=== PATIENT | male | born 1960 | race Caucasian/White ===

== ENCOUNTER 2021-04-20 13:21 | Outpatient (REF) | payer OTHER, SELFPAY ==
[2021-04-21 08:07] LABS: COVID-19 RT-PCR UVMMC Result Positive (Negative)
== END 2021-04-20 13:22 | disposition home or self-care (01) ==
LOC: NCHCN 13:21
PROVIDERS: PCP Family Medicine; Visit Provider Nurse Practitioner Family
DX: Z20.822 Contact with and (suspected) exposure to COVID-19 (principal)
CPT/HCPCS: U0003

== ENCOUNTER 2023-06-04 21:43 | Outpatient (REF) | payer OTHER, SELFPAY ==
[2023-06-04 22:02] LABS: Abs Immature Grans 0.02 10^3/uL (0.0-0.06); Absolute Basophil Count 0.07 10^3/uL (0.0-0.2); Absolute Eosinophil Count 0.07 10^3/uL (0.0-0.7); Absolute Lymphocyte Count 1.02 10^3/uL (1.2-3.4); Absolute Monocyte Count 0.72 10^3/uL (0.1-0.8); Absolute Neutrophil Count 6.42 10^3/uL (1.2-6.7); Basophils % 0.8; Eosinophils % 0.8; HCT 42.3 % (40.0-50.0); HGB 14.6 g/dL (13.5-17.5); Immature Grans % 0.2; Lymphocytes % 12.3; MCH 30.9 pg (27.0-33.0); MCHC 34.5 % (32.0-36.0); MCV 89 fL (80-95); MPV 10.7 fL (8.0-11.0); Monocytes % 8.7; Neutrophils % 77.2; Platelet Count 211 10^3/uL (130-400); RBC 4.73 10^6/uL (4.36-5.78); RDW 13.8 % (11.8-14.1); RDW-SD 45.1 fL; WBC 8.32 10^3/uL (4.4-10.8)
[2023-06-04 22:19] LABS: ALT 67 U/L (16-63); AST 56 U/L (15-37); Albumin 3.7 g/dL (3.4-5.0); Alkaline Phosphatase 76 U/L (46-116); Anion Gap 11.6 mmol/L (3-11); BUN 13 mg/dL (7-18); Bilirubin, Total 0.8 mg/dL (0.2-1.0); CO2 27.4 mmol/L (21.0-32.0); CREATININE 1.1 mg/dL (0.70-1.30); Chloride 101 mmol/L (98-107); Glucose 105 mg/dL (74-106); NT-proBNP 2569 pg/mL (<300); Potassium 3.2 mmol/L (3.5-5.1); Sodium 140 mmol/L (136-145); TSH 2.56 uIU/mL (0.36-3.74); Total Protein 7.2 g/dL (6.4-8.2)
== END 2023-06-04 21:44 | disposition home or self-care (01) ==
LOC: LBN 21:43
PROVIDERS: PCP Family Medicine; Visit Provider Nurse Practitioner Family
DX: I48.91 Unspecified atrial fibrillation (principal)
CPT/HCPCS: 80053; 83880; 84443; 85025

== ENCOUNTER → 2023-06-06 01:26 | Outpatient (CLI) | payer OTHER, SELFPAY ==
--- NOTE | 2023-06-06 | DI.RAD_ITS ---
Exam(s) XR CHEST 2V PA LATERAL EXAM: XR CHEST 2V PA LATERAL CLINICAL HISTORY: HYPERTENSION,NEW ONSET A FIB,SOB,? FLUID IN LUNGS TECHNIQUE: 2D digital imaging was performed of the chest. Two images were obtained. PA and lateral views were obtained. COMPARISON: No exams were available for comparison FINDINGS: MEDIASTINUM: Normal. HEART: Cardiomegaly. PULMONARY VASCULATURE: There is pulmonary venous congestion. LUNGS: No focal consolidating infiltrates. PLEURAL SPACE: There is a small amount of fluid in the right minor fissure and posteriorly at the cos tophrenic angles. BONE:Within normal limits for the patient's age. OTHER FINDINGS:Normal. IMPRESSION: 1. Cardiomegaly and pulmonary venous congestion. 2. Tiny pleural effusions. DATA REPOSITORY: RADIATION DOSE DELIVERED:
== END ==
PROVIDERS: PCP Family Medicine; Visit Provider Physician Assistant Medical
DX: I51.7 Cardiomegaly
CPT/HCPCS: 71046

== ENCOUNTER 2023-06-24 11:15 | Emergency (ER) | payer OTHER, SELFPAY ==
[2023-06-24] VITALS (147 sets, daily range): BP systolic 152–262; BP diastolic 101–172; PULSE 60–125; RESP 13–336; TEMP 36.5; O2SAT 90–97
--- NOTE | 2023-06-24 11:45 | RT.EKG_ITS ---
APPROVED REPORT Exam: Resting ECG Reason for Exam: JASMINA/a-laura Patient Location: E HR:99 bpm ECG Measurements Heart Rate 99 AXIS AK [id number] P [id number] QRSd 111 QRS -15 QT 385 T 120 QTc 495 Conclusion Atrial fibrillation...V-rate 86-125, irreg A-activity Inferior infarct, old...Q >35mS, II III aVF Probable anterolateral infarct, age indeterm...Q >35mS, T neg, V2-V6,I,aVL afib,rate controlled, left axis, non ischemic
[2023-06-24] MEDS: Furosemide 100 MG/10 ML VIAL 80 MG IVP (12:20)
[2023-06-24] MEDS: nitroGLYcerin 0.4 MG TAB SL (12:21)
[2023-06-24 12:26] LABS: Abs Immature Grans 0.03 10^3/uL (0.0-0.06); Absolute Basophil Count 0.06 10^3/uL (0.0-0.2); Absolute Eosinophil Count 0.05 10^3/uL (0.0-0.7); Absolute Lymphocyte Count 1.06 10^3/uL (1.2-3.4); Absolute Monocyte Count 0.76 10^3/uL (0.1-0.8); Absolute Neutrophil Count 6.81 10^3/uL (1.2-6.7); Basophils % 0.7; Eosinophils % 0.6; HCT 43.4 % (40.0-50.0); HGB 14.9 g/dL (13.5-17.5); Immature Grans % 0.3; Lymphocytes % 12.1; MCH 30.3 pg (27.0-33.0); MCHC 34.3 % (32.0-36.0); MCV 88 fL (80-95); MPV 10.4 fL (8.0-11.0); Monocytes % 8.7; Neutrophils % 77.6; Platelet Count 213 10^3/uL (130-400); RBC 4.91 10^6/uL (4.36-5.78); RDW 13.2 % (11.8-14.1); RDW-SD 42.8 fL; WBC 8.77 10^3/uL (4.4-10.8)
[2023-06-24 12:32] LABS: INR 1.2 (0.9-1.1); PTT Activated 29.6 sec (23.6-32.8); Prothrombin Time 11.7 sec (9.1-11.1)
--- NOTE | 2023-06-24 12:41 | ED.GENADUL_ITS ---
HPI General Date/Time Provider Initiated Documentation: 06/24/23 11:55 . HPI Narrative: 63-year-old male history of A-fib on anticoagulation presents with shortness of breath on exertion and fatigue. Denies history of thrombolic disease. Does take HCTZ for edema. Related Data Home Medications Medication Instructions Recorded Confirmed apixaban 5 mg tablet (Eliquis) 5 mg PO BID 06/24/23 06/24/23 furosemide 40 mg tablet 40 mg PO DAILY 06/24/23 06/24/23 metoprolol succinate 25 mg 25 mg PO DAILY 06/24/23 06/24/23 tablet,extended release 24 hr potassium chloride 20 mEq 20 meq PO DAILY 06/24/23 06/24/23 tablet,extended release Allergies Allergy/AdvReac Type Severity Reaction Status Date / Time No Known Allergies Allergy Unverified 06/24/23 11:27 General Stated Complaint: SOB BROWN: 2 Review of Systems Narrative: Review of Systems Constitutional: Fatigue Eyes: negative ENT: negative Cardiovascular: negative Respiratory: Shortness of breath Gastrointestinal: negative : negative Musculoskeletal: negative Skin: negative Neurologic: negative Psych: negative Exam Narrative Exam Narrative: Physical Examination General: alert, awake, cooperative, resting comfortably, no acute distress HEENT: normocephalic, atraumatic; PERRL, EOM intact, conjunctiva normal; no nasal discharge; moist mucous membranes, oral and pharyngeal mucosa normal, tolerating secretions Neck: supple, trachea midline; full ROM Chest: normal to inspection Respiratory: normal respiratory effort, speaking in full sentences, clear to auscultation, no wheezing, rales or rhonchi Cardiac: Irregularly irregular tachycardia, S1S2 intact, no murmurs rubs or gallops GI: abdomen soft, non-tender, non-distended; no palpable mass or hep atosplenomegaly Skin: no lesions, rashes or trauma appreciated Neuro: AAOx3, normal speech, moving all extremities Extremities: Edema to bilateral ankles Psych: Appropriate mood and affect Course Vital Signs Vital signs: Vital Signs Temperature 36.5 C 06/24/23 11:24 Pulse 111 H 06/24/23 11:24 Respiratory Rate 06/24/23 11:24 Blood Pressure 262/151 H 06/24/23 11:24 Pulse Oximetry 96 06/24/23 11:24 Temperature 36.5 C 06/24/23 11:24 Temperature Source Temporal Artery Scan 06/24/23 11:24 Pulse 105 H 06/24/23 11:35 Pulse 104 H 06/24/23 11:35 Respiratory Rate 336 H 06/24/23 11:37 Respiratory Effort Short of Breath, Incrsd Work of Breathing 06/24/23 11:37 Respiratory Depth Normal 06/24/23 11:37 Respiratory Pattern Tachypnea 06/24/23 11:37 Blood Pressure 229/157 H 06/24/23 11:35 Blood Pressure Mean 177 06/24/23 11:35 Blood Pressure Position Sitting 06/24/23 11:24 Pulse Oximetry 97 06/24/23 11:35 Oxygen Delivery Method Room Air 06/24/23 11:24 Oxygen Flow Rate 0 06/24/23 11:24 Pain Level 5 06/24/23 11:37 Comment 8/10 when walking 06/24/23 11:37 Lab/Test Results Lab/Test Results: Laboratory Tests Range/Units 06/24/23 12:00 WBC (4.4-10.8) 10^3/uL 8.77 RBC (4.36-5.78) 10^6/uL 4.91 Hgb (13.5-17.5) g/dL 14.9 Hct (40.0-50.0) % 43.4 MCV (80-95) fL 88 MCH (27.0-33.0) pg 30.3 MCHC (32.0-36.0) % 34.3 RDW (11.8-14.1) % 13.2 Plt Count (130-400) 10^3/uL 213 MPV (8.0-11.0) fL 10.4 Immature Gran % 0.3 Neutrophils % 77.6 Lymphocytes % 12.1 Monocytes % 8.7 Eosinophils % 0.6 Basophils % 0.7 Nucleated RBC % (0.0-0.3) % 0.0 Absolute Neutrophils (1.2-6.7) 10^3/uL 6.81 H Absolute Lymphocytes (1.2-3.4) 10^3/uL 1.06 L Absolute Monocytes (0.1-0.8) 10^3/uL 0.76 Absolute Eosinophils (0.0-0.7) 10^3/uL 0.05 Absolute Basophils (0.0-0.2) 10^3/uL 0.06 PT (9.1-11.1) sec 11.7 H INR (0.9-1.1) 1.2 H APTT (23.6-32.8) sec 29.6 Medical Decision Making 63-year-old male history of A-fib on anticoagulation, on HCTZ, presents with shortness of breath and fatigue exertional in nature. EKG A-fib rate controlled; patient does have bilateral ankle edema, bedside ultrasound showing decreased ejection fraction as well as bilateral B-lines suggestive of component of CHF and pulmonary edema. Given level of hypertension both pulmonary and peripheral edema patient started on nitro given 80 IV of Lasix, will obtain basic labs chest x-ray. Close reassessment of symptoms. Low suspicion for ACS PE aortic pathology pneumonia pneumothorax 16: 56 evidence of mild CHF, elevated troponin slightly uptrending. No chest pain, patient feeling much better after diuresis. No respiratory distress. Given exertional dyspnea fatigue in the setting of elevated troponin, Q waves on EKG patient likely had NSTEMI within the last week or 2. Has a remote cardiology appointment for July, have placed a call to [place] for cardiology consultation however is after hours and they recommend using [facility] cardiology service. Have placed a call to [facility] for consultation with cardiology. 17: 35 [facility] agrees that this is likely hypertensive emergency with component of NSTEMI, patient to benefit from echo BP control serial troponin EKG and possible cath however given there decreased capacity they are unable to accept patient, recommend transferring patient to facility with ability to perform catheterization. Have placed a call to [facility] cardiology team awaiting callback. Quality:[facility] Health Related Social Needs: No Data to Display [facility] Social History Smoking/Tobacco Use Status: Never Smoking risk assessment performed?: Yes Alcohol Intake: current Alcohol Intake frequency: holidays/special occasions only Drug use: Never Substance use type: does not use Housing: house Do you feel safe at home: Yes Do you feel safe in your relationship?: Yes Discharge Plan Discharge Details Chief Complaint: SOB Primary Care Provider: Daina Dexter ED Provider: Jose Harris Home Meds and New Rx's Prescriptions: No Action Eliquis 5 mg tablet 5 mg PO BID furosemide 40 mg tablet 40 mg PO DAILY potassium chloride 20 mEq tablet extended release 20 meq PO DAILY metoprolol succinate 25 mg tablet extended release 24 hr 25 mg PO DAILY
[2023-06-24 13:01] LABS: ALT 48 U/L (16-63); AST 46 U/L (15-37); Albumin 3.7 g/dL (3.4-5.0); Alkaline Phosphatase 75 U/L (46-116); Anion Gap 9.1 mmol/L (3-11); BUN 14 mg/dL (7-18); CO2 25.9 mmol/L (21.0-32.0); CREATININE 1.1 mg/dL (0.70-1.30); Calcium 9.1 mg/dL (8.5-10.1); Chloride 102 mmol/L (98-107); Estimated GFR 75.43 (mL/min/1.73m2); Glucose 106 mg/dL (74-106); Potassium 3.4 mmol/L (3.5-5.1); Sodium 137 mmol/L (136-145); Total Protein 7.8 g/dL (6.4-8.2)
[2023-06-24 13:13] LABS: Troponin I 2002 ng/L (< or =60)
--- NOTE | 2023-06-24 13:25 | DI.RAD_ITS ---
Exam(s) XR CHEST 2V PA LATERAL EXAM: XR CHEST 2V PA LATERAL CLINICAL HISTORY: sob, afin, concerned for CHF TECHNIQUE: 2D digital imaging was performed. COMPARISON: CR XR CHEST 2V PA LATERAL from 06/06/2023 FINDINGS: HEART: Enlarged, unchanged. Aorta: Tortuous. PULMONARY VASCULATURE: Normal. LUNGS: Improvement in previously noted CHF. There may be minimally increased interstitial markings. PLEURAL SPACE: No pleural effusion or pneumothorax. BONE:Severe degenerative changes of the left shoulder. Degenerative changes with flowing osteophytes in the thoracic spine. Soft tissues: Unremarkable. IMPRESSION: Minimal pleural effusions. Cardiomegaly. Question of mild CHF. Findings appear improved from prior exam. DATA REPOSITORY: RADIATION DOSE DELIVERED:
[2023-06-24 13:31] LABS: NT-proBNP 5342 pg/mL (<300)
[2023-06-24] MEDS: Aspirin 325 MG TAB PO (15:02)
[2023-06-24 15:35] LABS: Troponin I 2307 ng/L (< or =60)
--- NOTE | 2023-06-24 18:14 | ED.PROG_ITS ---
Date of service: 06/24/23 Time of Service: 18:15 Medical Decision Making pt states he feels well, bp still 180/140, will start nitro infusion. [facility] also unable to accept patient, will reach out to [facility]. [facility], [facility], [facility], [facility], [facility] and [facility] facilities with catheterization capabilities also decline, [facility] decline transfer due to capacity. [facility] did accept, Dr. Lemons accepting provider. Pt updated and is in agreement with the plan Lab Data Lab results reviewed: Yes I reviewed the patient's lab results. Quality:[facility] Health Related Social Needs: No Data to Display Sign Out Sign Out Data: Sign Out Comment: NSTEMI HTN emergency, [facility]; [facility] recommends transfer to cath capable facility; awaiting [facility] callback Last updated by Jose Harris MD at 06/24/23 17:37 Discharge Plan Disposition Specific Acute Inpt Facility: Other Other Facility: [facility] Condition: Serious Discharge Details Chief Complaint: SOB Clinical Impression: CHF exacerbation, Non-ST elevation [place] (NSTEMI) Primary Care Provider: Daina Dexter ED Provider: Justin Chand Home Meds and New Rx's Prescriptions: No Action Eliquis 5 mg tablet 5 mg PO BID furosemide 40 mg tablet 40 mg PO DAILY potassium chloride 20 mEq tablet extended release 20 meq PO DAILY metoprolol succinate 25 mg tablet extended release 24 hr 25 mg PO DAILY
--- NOTE | 2023-06-24 18:14 | W.EDPROG ---
Date of service: 06/24/23 Time of Service: 18:15 Medical Decision Making pt states he feels well, bp still 180/140, will start nitro infusion. [facility] also unable to accept patient, will reach out to [facility]. [facility], [facility], [facility], [facility], [facility] and [facility] facilities with catheterization capabilities also decline, [facility] decline transfer due to capacity. [facility] did accept, Dr. Lemons accepting provider. Pt updated and is in agreement with the plan Lab Data Lab results reviewed: Yes I reviewed the patient's lab results. Quality:[facility] Health Related Social Needs: No Data to Display Sign Out Sign Out Data: Sign Out Comment: NSTEMI HTN emergency, [facility]; [facility] recommends transfer to cath capable facility; awaiting [facility] callback Last updated by Jose Harris MD at 06/24/23 17:37 Discharge Plan Disposition Specific Acute Inpt Facility: Other Other Facility: [facility] Condition: Serious Discharge Details Chief Complaint: SOB Clinical Impression: CHF exacerbation, Non-ST elevation [place] (NSTEMI) Primary Care Provider: Daina Dexter ED Provider: Justin Chand Home Meds and New Rx's Prescriptions: No Action Eliquis 5 mg tablet 5 mg PO BID furosemide 40 mg tablet 40 mg PO DAILY potassium chloride 20 mEq tablet extended release 20 meq PO DAILY metoprolol succinate 25 mg tablet extended release 24 hr 25 mg PO DAILY
[2023-06-24] MEDS: Heparin in 0.45% NaCl 25,000 UNIT/250 ML BAG 10 UNIT IV (19:05)
[2023-06-24] MEDS: nitroGLYcerin in D5W 50 MG/250 ML BTL IV (19:06)
[2023-06-24 19:47] LABS: Troponin I 2694 ng/L (< or =60)
== END 2023-06-24 21:49 ==
PROVIDERS: Emergency Medicine; Emergency Provider Emergency Medicine; PCP Physician Assistant
DX: I48.19 Other persistent atrial fibrillation; I21.4 Non-ST elevation (NSTEMI) myocardial infarction; R22.43 Localized swelling, mass and lump, lower limb, bilateral; R06.02 Shortness of breath
CPT/HCPCS: 123; 36415; 80053; 93005; 96365; 96366; 96375; 99285; 00123; 71046; 83735; 83880; 84484; 85025; 85610; 85730; 93010; J1644; J1940; J2305

== ENCOUNTER 2023-07-02 14:52 | Outpatient (RCR) | payer OTHER, SELFPAY | END 2023-07-03 23:59 | disposition home or self-care (01) | LOC: CR 14:52 | PROVIDERS: PCP Physician Assistant; Visit Provider Internal Medicine Interventional Cardiology | DX: I21.4 Non-ST elevation (NSTEMI) myocardial infarction (principal) ==

== ENCOUNTER 2023-07-12 13:53 | Outpatient (RCR) | payer OTHER, SELFPAY ==
--- NOTE | 2023-07-15 12:23 | NUR.NOTE ---
Nursing Note: Patient presented for first cardiac rehab session today. Bp noted to be high at 163/110 and HR noted to be in the low 90's. Patient denied H/A, dizziness or any other symptoms and stated he felt well. Discussed with [employer] Supervisor with Dr. Hernandez who agreed patient should not exercise today. Dr. Jean office updated of all above info. Patient educated on s/s to be evaluated urgently and stated understanding. Patient left ambulatory in no apparent distress.
== END 2023-08-01 23:59 | disposition home or self-care (01) ==
LOC: CR 13:53
PROVIDERS: PCP Physician Assistant; Visit Provider Internal Medicine Interventional Cardiology
DX: I21.4 Non-ST elevation (NSTEMI) myocardial infarction (principal); Z95.5 Presence of coronary angioplasty implant and graft; Z51.89 Encounter for other specified aftercare
CPT/HCPCS: S9472

== ENCOUNTER → 2023-10-09 01:54 | Outpatient (CLI) | payer OTHER, SELFPAY ==
--- NOTE | 2023-10-09 | DI.RAD_ITS ---
Exam(s) XR KNEE LT 3V AP,LAT,STACEY EXAM: XR KNEE LT 3V AP,LAT,STACEY CLINICAL HISTORY: [id number],LT KNEE PAIN,M25.562. TECHNIQUE: 2D digital imaging was performed. Three views. COMPARISON: No exams were available for comparison FINDINGS: BONES: No acute fracture is present. No bony destructive lesion is seen. JOINTS: Severe narrowing of the medial femoral tibial joint space and patellofemoral joint, with a iris ne-on-bone appearance. Prominent periarticular spurring. Varus angulation at the knee with widening of the lateral femoral tibial joint space. No joint effusion is seen. SOFT TISSUE: Normal. IMPRESSION: Severe degenerative changes of the patellofemoral joint and medial femoral tibial joint. DATA REPOSITORY: RADIATION DOSE DELIVERED:
--- NOTE | 2023-10-09 | DI.RAD_ITS ---
Exam(s) XR ANKLE RT COMPLETE EXAM: XR ANKLE RT COMPLETE CLINICAL HISTORY: [id number],RT ANKLE LOCKING,DISCOMFORT,M25.571. TECHNIQUE: 2D digital imaging was performed. Three views. COMPARISON: No exams were available for comparison FINDINGS: BONES: No acute fracture is present. No bony destructive lesion is seen. Small plantar calcaneal spu r. JOINTS: The ankle mortise is normally aligned. Tibiotalar joint space is maintained. There are deg enerative changes of the talocalcaneal joint and prominent posterior spurring. SOFT TISSUE: Edema. Vascular calcifications. Calcification in plantar fascia. IMPRESSION: Degenerative changes of the talocalcaneal joint. Heel spur and plantar fascial calcification. DATA REPOSITORY: RADIATION DOSE DELIVERED:
== END ==
PROVIDERS: PCP Physician Assistant; Visit Provider Physician Assistant
DX: M17.12 Unilateral primary osteoarthritis, left knee (principal); M19.071 Primary osteoarthritis, right ankle and foot
CPT/HCPCS: 73562; 73610

== ENCOUNTER 2025-05-06 14:47 | Outpatient (CLI) | payer OTHER, SELFPAY ==
--- NOTE | 2025-05-06 13:45 | DI.RAD_ITS ---
Exam(s) XR KNEE LT 1V XR STANDING ALIGNMENT EXAM: XR STANDING ALIGNMENT and XR knee LT 1 V CLINICAL HISTORY: TKR Planning. TECHNIQUE: 2D digital imaging was performed. Five images were obtained. COMPARISON: CR XR KNEE LT 3V AP,LAT,STACEY from 10/09/2023 FINDINGS: BONES: The hips are well maintained. In the left knee, there is marked narrowing of the medial femoral tibial joint and the patellofemoral joint. Osteophytes are seen in all 3 joint compartments. In the right knee, moderate degenerative changes are present. The ankles are well maintained.There is no significant leg length discrepancy. SOFT TISSUE: Normal. IMPRESSION: Marked osteoarthritis of the left knee. DATA REPOSITORY: RADIATION DOSE DELIVERED:
== END 2025-05-06 14:48 | disposition home or self-care (01) ==
LOC: DIORS 14:48
PROVIDERS: PCP Physician Assistant; Visit Provider Physician Assistant
DX: M17.12 Unilateral primary osteoarthritis, left knee (principal)
CPT/HCPCS: 73560; 77073

== ENCOUNTER 2025-05-11 10:45 | Day surgery (SDC) | payer OTHER, SELFPAY ==
[2025-05-11] VITALS (28 sets, daily range): BP systolic 130–178; BP diastolic 88–123; PULSE 86–104; RESP 14–27; TEMP 36.5–37; TEMPC 36.2; O2SAT 95–100; BMI 41.3
--- NOTE | 2025-05-11 07:22 | W.PM.DSUDISC ---
Date of service: 05/11/25 Discharge Plan Disposition Patient Disposition: Home Condition: Good Discharge Details Reason For Visit: Left knee DJD Attending Provider: Irvin Landers Primary Care Provider: Daina Dexter Home Meds and New Rx's Prescriptions: New acetaminophen 500 mg tablet 1,000 mg PO Q8H PRN Qty: 90 0RF Rx Instructions: Take two tablets up to every 8 hours as needed for pain docusate sodium [Colace] 100 mg capsule 100 mg PO BID Qty: 28 0RF meloxicam 15 mg tablet 15 mg PO DAILY Qty: 30 1RF Rx Instructions: Take one tablet daily for pain and inflammation pantoprazole 40 mg tablet,delayed release (DR/EC) 40 mg PO DAILY Qty: 14 0RF Rx Instructions: Take one tablet once daily dexamethasone 4 mg tablet 4 mg PO DAILY Qty: 2 0RF Rx Instructions: Take one tablet once daily for two days gabapentin 300 mg capsule 300 mg PO QHS Qty: 14 0RF Rx Instructions: Take one tablet at bedtime oxycodone 5 mg tablet 5 mg PO Q4H PRNQty: 18 0RF Rx Instructions: Take one tablet up to every 4 hours as needed for severe postoperative pain Continued atorvastatin [Lipitor] 80 mg tablet 80 mg PO DAILY metoprolol succinate 50 mg tablet extended release 24 hr 50 mg PO DAILY potassium chloride 10 mEq capsule, extended release 20 meq PO BID spironolactone 25 mg tablet 25 mg PO DAILY ergocalciferol (vitamin D2) 50 mcg (2,000 unit) tablet 50 mcg PO DAILY sacubitril-valsartan 97-103 mg tablet 1 tab PO BID alirocumab 75 mg/mL pen injector 75 mg subcut Q14D Eliquis 5 mg tablet 5 mg PO BID furosemide 40 mg tablet 40 mg PO DAILY Discharge Instructions Additional Instructions: Total Knee Discharge Instructions Activity: The most important activity is to walk and to work on gentle motion (both flexion and extension). You should try to take short walks a few times a day. It is important that when resting you work on keeping the knee straight. Avoid putting a pillow behind the knee as this will encourage flexion. Work on range of motion exercises as provided by Physical Therapy. - Start outpatient physical therapy within 2 weeks. - You should wear the FROY hose on both legs for 2 weeks. You may remove these at night. You may also use any compression sock in place of the FROY hose. - Utilize [employer] to review exercises, see videos on exercises and obtain basic information pertaining to your surgery and your recovery. Dressing: Remove the Sean wrap by 2 days after your surgery and put on the FROY stocking given to you from the hospital. Keep the surgical dressing (underneath the SEAN wrap) in place for at least one week. After the first week it may be removed and replaced with light gauze and tape or nothing. The wound and dressing may get wet after 3 days but avoid soaking the dressing or otherwise it will need to be changed. Many people prefer covering the dressing with cling wrap (saran wrap) to minimize it from getting soaked. If it gets wet, just pat dry. If it starts to peel off then it will need to be changed. Medications: - You should take Tylenol and anti-inflammatory Meloxicam as your primary pain control medications. If the Meloxicam is too expensive or not covered, please call the office for another alternative (Advil/Ibuprofen or Naproxen/Aleve) - You have been prescribed a stronger pain medication Oxycodone for breakthrough pain, take as needed as prescribed. - You have also been prescribed a stomach acid reduction agent Pantoprozole to help reduce stomach acid and reflux. - You have been prescribed Gabapentin to take at night for restlessness and nerve pain. - You resume taking your normal anticoagulation, Eliquis, tomorrow on 05/12/25 for DVT prevention unless instructed otherwise. - You have also been prescribed Decadron to take to control post-operative nausea and pain. You will start this tomorrow. - If you have constipation you should take Colace (which has been prescribed) or Miralax (which is available [id number]). It takes most people 3-4 days to have a bowel movement. Follow-up: 2 weeks If you have any acute concerns or questions, please do not hesitate to contact the office at [phone]. You may contact Dr. Landers with any questions after hours through the hospital at [phone] or on his cell phone at [phone]. Stand Alone Forms: Portal Information Referrals: Irvin Landers MD [ [facility] STAFF PHYSICIAN, Orthopaedic Surgical] Equipment/Supplies: Walker Activity:: Elevate Remove Dressings/Wound Care:: Do Not Remove Shower/Bathe:: Cover Diet:: As Tolerated Discharge Orders Discharge Orders: Discharge Order (Routine); Ordered 05/11/25 Ordered By: Nuris Sinclair
--- NOTE | 2025-05-11 10:51 | W.ANESPRE ---
General Info Date of Service Date Performed: 05/11/25 Height: 5 ft 6 in Weight: 116.12 kg Body Mass Index (BMI): 41.3 Surgical Procedure: Operation Date: 05/11/25 13:55 Proposed Procedure Side Surgeon p Knee Total Arthroplasty Left Irvin Landers MD Meds Allergies and Home Medications Allergies Allergy/AdvReac Type Severity Reaction Status Date / Time No Known Allergies Allergy Verified 05/11/25 11:27 Home Medication ?Medication ?Instructions ?Recorded apixaban 5 mg tablet (Eliquis) 5 mg PO BID 06/24/23 furosemide 40 mg tablet 40 mg PO DAILY 06/24/23 alirocumab 75 mg/mL subcutaneous 75 mg subcut Q14D 03/04/25 pen injector atorvastatin 80 mg tablet (Lipitor) 80 mg PO DAILY 03/04/25 ergocalciferol (vitamin D2) 50 mcg 50 mcg PO DAILY 03/04/25 (2,000 unit) tablet metoprolol succinate 50 mg 50 mg PO DAILY 03/04/25 tablet,extended release 24 hr potassium chloride 10 mEq 20 meq PO BID 03/04/25 capsule,extended release sacubitril 97 mg-valsartan 103 mg 1 tab PO BID 03/04/25 tablet spironolactone 25 mg tablet 25 mg PO DAILY 03/04/25 acetaminophen 500 mg tablet 1,000 mg (2 x 500 mg) PO Q8H PRN 05/11/25 pain #90 tabs dexamethasone 4 mg tablet 4 mg PO DAILY #2 tabs 05/11/25 docusate sodium 100 mg capsule 100 mg PO BID #28 caps 05/11/25 (Colace) gabapentin 300 mg capsule 300 mg PO QHS #14 caps 05/11/25 meloxicam 15 mg tablet 15 mg PO DAILY #30 tabs 05/11/25 oxycodone 5 mg tablet 5 mg PO Q4H PRN #18 tabs 05/11/25 pantoprazole 40 mg tablet,delayed 40 mg PO DAILY #14 tabs 05/11/25 release Current Visit Medications: Current Medications Generic Name Dose Route Start Last Admin Trade Name Freq PRN Reason Stop Dose Admin Acetaminophen 1,000 mg 05/11/25 06:00 Acetaminophen 500 Mg Tab PO 06/09/25 23:59 PREOP LENNY Celecoxib 400 mg 05/11/25 06:00 Celecoxib 200 Mg Cap PO 06/09/25 23:59 PREOP LENNY Gabapentin 300 mg 05/11/25 06:00 Gabapentin 300 Mg Cap PO 06/09/25 23:59 PREOP LENNY Hydromorphone HCl 0.5 mg 05/11/25 07:17 Hydromorphone 2 Mg/Ml Syr IVP 06/10/25 07:16 Q2H PRN PRN Ringer's Solution 1,000 mls @ 80 mls/hr 05/11/25 06:00 IV 06/09/25 23:59 INFUSION LENNY Cefazolin Sodium 3,000 mg/ 100 mls @ 200 mls/hr 05/11/25 06:00 Sodium Chloride IV 06/09/25 23:59 PREOP LENNY Tranexamic Acid/Sodium Chloride 1,000 mg in 100 mls @ 600 mls/hr 05/11/25 06:00 IVPB 06/09/25 23:59 PREOP LENNY Cefazolin Sodium/Dextrose 1 gm in 50 mls @ 100 mls/hr 05/11/25 08:00 Ancef Duplex IVPB 05/12/25 00:29 Q8H LENNY Oxycodone HCl 0 mg 05/11/25 07:17 Oxycodone 5 Mg Tab PO 06/10/25 07:16 Q3H PRN PRN Pain Sodium Chloride 0 ml 05/11/25 06:00 Normal Saline Flush 10 Ml Syr IV 06/09/25 23:59 PRN PRN Sodium Chloride 0 ml 05/11/25 06:00 Normal Saline 10 Ml Vial IJ 06/09/25 23:59 DIRECTED PRN Sterile Water 0 ml 05/11/25 06:00 Water,Injection,Sterile 10 Ml Vial IJ 06/09/25 23:59 DIRECTED PRN Tranexamic Acid 1,300 mg 05/11/25 07:17 Tranexamic Acid 650 Mg Tab PO 06/10/25 07:16 ONCE PRN postoperative PFSH Active Problems Active Problems: Problem Status Onset Code History of total left knee replacement Acute 05/11/25 Z96.652 Medical History Medical History High cholesterol HTN (hypertension) History of cardioversion SALINA (obstructive sleep apnea) Hypertensive urgency Afib History of ischemic cardiomyopathy Surgical History Surgical History Hx of colonoscopy Hx of cardiac catheterization Hx of CABG History of CT (myocardial infarction) With stent placement Tobacco Smoking/Tobacco Use Status: Never Passive smoking exposure: Yes Alcohol Alcohol Intake: current Alcohol intake frequency: holidays/special occasions only Substance Use Substance use: Never Substance use type: does not use Vital Signs and Lab Results Vital Signs Most Recent Vital Signs in EMR: Temp Pulse Resp BP Pulse Ox 36.9 C 97 H 16 150/88 H 97 05/11/25 11:50 05/11/25 11:50 05/11/25 11:50 05/11/25 11:50 05/11/25 11:50 Imaging and Studies Imaging and Studies Study information below may be from another EMR and interpreted by another provider. Please see original notes in EMR for more complete details. EKG Summary: 06/24/23 HR:99 bpm ECG Measurements Heart Rate 99 AXIS MA [id number] P [id number] QRSd 111 QRS -15 QT 385 T120 QTc 495 Conclusion Atrial fibrillation...V-rate 86-125, irreg A-activity Inferior infarct, old...Q >35mS, II III aVF Probable anterolateral infarct, age indeterm...Q >35mS, T neg, V2-V6,I,aVL afib,rate controlled, left axis, non ischemic Anesthesia Assessment and Plan Anesthesia History Personal History: PONV Family History: No Family History of Anesthesia Complications Exercise Tolerance Exercise Tolerance: Metabolic Equivalents<4 Pertinent Negatives Pertinent Negatives: No Symptoms of GERD, No Major Pulmonary Symptoms or Complaints and No History of CVA/TIA Cardiac & Pulmonary Exam Cardiac Exam: Normal S1/S2 Heart Sounds Pulmonary Exam: Clear Bilateral Breath Sounds Implantable Cardiac Device Does patient have a Pacemaker or an ICD?: No Airway Exam Known Difficult Airway: No Mallampati Class: 2 Mouth Opening: Normal (> 3cm) Thyromental Distance: Greater than 3 cm Neck Range of Motion: Full ROM Neck Circumference: Normal Teeth Condition: Generalized Poor Dentition ASA Classification ASA Score: ASA 3 Emergency Case?: No NPO Status NPO Status: NPO Clears >2 hours, Solids >8 hours Anesthesia Plan Resuscitation Status: Full Code Anesthesia Technique: Spinal Anesthesia Airway Planned: Natural Airway Pain Management: Surgeon and patient request nerve block Monitors Used: Standard Monitors
[2025-05-11] MEDS: Acetaminophen 500 MG TAB 1000 MG PO (11:48)
[2025-05-11] MEDS: Gabapentin 300 MG CAP PO (11:48)
[2025-05-11] MEDS: Celecoxib 200 MG CAP 400 MG PO (11:48)
[2025-05-11] MEDS: Lactated Ringers 1,000 ML 80 ML IV (12:03)
[2025-05-11] MEDS: ceFAZolin 3,000 MG in Normal Saline 100 ML 200 MG IV (13:03)
[2025-05-11] MEDS: TRANEXAMIC ACID/SOD. CHL. 1,000 MG/100 ML BAG 600 MG IVPB (13:15)
[2025-05-11] MEDS: ROPIvacaine/EPI/CLONIDINE/KET 50 ML SYRINGE IJ (13:27)
--- NOTE | 2025-05-11 13:28 | W.ANESNERVE ---
Nerve Block Single Injection Procedure Date and Time Date Performed: 05/11/25 Procedure Start: 12:30 Location Where Procedure Performed Procedure Location: Day Surgery Unit Reason Performed: Postoperative Analgesia Requesting Provider: Irvin Landers Timeout Performed Timeout Performed: Yes Monitoring Used ECG, Blood Pressure, SpO2 and See EMR for corresponding vital signs Sterility Sterility: Hand Hygiene, Surgical Cap, Surgical Mask, Sterile Gloves and Chlorhexidine Sedation Given During Procedure Sedation Given (Indicate Dose Given): Propofol IV Dose:: 20mg Patient Mental Status Patient Mental Status: Sedate with meaningful communication Nerve Block 1st Nerve Block: Laterality: Left Block Type: Adductor Canal Ultrasound Image Saved?: Yes Needle / Catheter Used: 100mm SonoPlex II Local Anesthetic Bolus (Indicate Dose Given): Lidocaine used for local infiltration of skin, Bupivacaine 0.25% Dose:: 10 ml and Exparel Dose:: 10ml Additives (Indicate Dose Given): None Ultrasound: Sterile probe cover and gel used Nerve Stimulator: No twitch or parasthesia noted < 0.5 mA Paresthesia: None Procedure Tolerated: No Complications and Patient tolerated well Procedure Outcome: Successful Performed By: Essence Mcginnis Supervised By: Talat Sheldon 2nd Nerve Block: Laterality: Left Block Type: Other (Anterior femoral Cutaneous nerves) Ultrasound Image Saved?: Yes Needle / Catheter Used: 100mm SonoPlex II Local Anesthetic Bolus (Indicate Dose Given): Bupivacaine 0.25% Dose:: 10 ml Additives (Indicate Dose Given): None Ultrasound: Sterile probe cover and gel used Nerve Stimulator: Supplement to Ultrasound use, Expected parasthesia or motor response elicited and No twitch or parasthesia noted < 0.5 mA Paresthesia: None Procedure Tolerated: No Complications and Patient tolerated well Procedure Outcome: Successful Performed By: Essence Mcginnis Supervised By: Talat Sheldon
--- NOTE | 2025-05-11 14:45 | RT.EKG_ITS ---
APPROVED REPORT Exam: Resting ECG Reason for Exam: PACU, pauses and bradycardia in OR Patient Location: O HR:102 bpm ECG Measurements Heart Rate 102 AXIS AL [id number] P [id number] QRSd 117 QRS 4 QT 364 T 29 QTc 474 Conclusion Atrial fibrillation...? atrial activity Nonspecific intraventricular conduction delay...QRSd >115mS, not LBBB/RBBB Low voltage, precordial leads...precordial leads <1.0mV
[2025-05-11] MEDS: fentaNYL 100 MCG/2 ML VIAL IVP (14:46)
--- NOTE | 2025-05-11 14:54 | ROE_ITS ---
Operative Note Operative Note PRE-OP DIAGNOSIS: Left Knee Osteoarthritis POST-OP DIAGNOSIS: same PROCEDURE: Left Total Knee Replacement SURGEON: Irvin Landers BIOINFORMATICS SCIENTIST: Nuris Sinclair ANESTHESIA TYPE: Spinal Refer to Anesthesia Record ESTIMATED BLOOD LOSS: 150 PATHOLOGY: none sent TOURNIQUET TIME: 0 COMPLICATIONS: Other (Upon administration of propofol there were 2 brief asystolic pauses which resolved on their own. [facility] and was seen to have no residual issue and no sign of high spinal or stroke. He desired to proceed with surgery and he was stable from that point forward) Patient was transported to: PACU Patient's condition: stable Implants: 1. Depuy Attune Cementless Cruciate Retaining Femoral Component, Size 5 2. Depuy Attune Cementless Fixed Bearing Tibial Component, Size 4 3. Depuy Attune 5x10mm CR/FB Poly 4. Depuy Attune Patellar Component, Size 38mm Indications: I have seen Benigno in clinic for symptoms of knee arthritis, confirmed with radiographic findings. He has exhausted nonoperative methods and was having significant limitations in daily function and desired better function and less pain. I discussed the technical details of a knee replacement. I explained the risks of the procedure to include, but not limited to, bleeding, infection, pain, stiffness, fracture, damage to nerves and vessels, damage to muscles and tendons, loosening, need for repeat procedure, blood clot and cardiopulmonary demise. Despite these risks, Art elected to proceed. Findings: There was significant signs of arthritis throughout the knee involving all 3 compartments. Procedure Description: Benigno was greeted in the preoperative holding area where the correct side was identified and marked. The consent was reviewed with the patient and signed. The history and physical was updated. All questions were answered. Preoperative medications were administered: Acetaminophen 1000mg, Celebrex 400mg, and Gabapentin 300mg. An adductor canal block was then administered by the anesthesia team in the DSU. He was taken back to the operating room. A spinal anesthestic was then administered. The patient was placed into the supine position on the operating room table. Posts were placed for positioning during the procedure. All bony prominences were well padded. During this prep time of the case gentle sedation was administered by anesthesia in the form of propofol. It was then recognized that he had a brief pause of asystole. He remained perfused and recovered. This happened a second time. Sedation was stopped and he was awakened. Prepping for the case was paused until he was awake where we were able to evaluate him which showed he had active hand function thus no high spinal, and was able to completely discuss his case and any symptoms which he had none. He desired for us to proceed with surgery and he remained stable from this point onward. Then, prophylactic antibiotics in the form of Cefazolin were administered. 1g of Tranxemic Acid was given intravenously within 30 minutes of incision. The left leg was then prepped with Chloraprep and draped in a standard fashion with impervious stockinette. A second prep with Chloraprep was performed prior to application of Iodine impregnated skin protection. A timeout to confirm correct identity, side and site, procedure, allergies, anesthesia, and medical concerns was performed. With the knee in some flexion, a midline incision was made overlying the knee. Full thickness skin flaps were raised once the extensor mechanism was encountered. These were raised medially and laterally. Any bleeding was controlled with electrocautery. Once the extensor mechanism was fully exposed, a medial parapatellar arthrotomy was performed in a flexed position. All bleeding from the arthrotomy and the geniculate arteries was coagulated. A medial subperiosteal peel was performed with electrocautery to the midcoronal plane. Due to the significant varus deformity the entire medial tibial plateau was exposed. The fat pad was removed while keeping the patellar tendon protected. The anterior distal femur synovium was removed for later visualization. The ACL and PCL were resected and the a nterior horn of the lateral meniscus was transected. The knee was then flexed with the patella everted. Large osteophytes from the tibia were removed. Large osteophytes from the femur were removed. Using a step drill, and based on preoperative templating, the femoral canal was entered. This was done with a step drill without any difficulty. The intramedullary distal femoral cut guide was inserted, set to a 6 degree valgus cut and 8mm cut thickness. The distal femoral cut guide was then held in position and pinned. With the soft tissues protected, the distal cut was performed. This was passed over a few times to ensure a planar cut. I then turned attention to the tibia. The extramedullary guide was placed onto the leg. The distal aspect was slid medial to adjust for position of center of ankle and stay in line with shaft of the tibia. Approximately 5 degrees of posterior slope was kept in the proximal cutting guide. The center of the guide was aligned with the PCL. The stylus was used to assess cut thickness. The medial side, most involved side, was set for a 4mm cut. This was then held in position and pinned into place with 2 additional pins and a cross pin for stability. The medial and lateral collateral ligaments were protected and the cut was performed. With this completed, it was assessed and noted to be of appropriate dimensions. The guide was removed. A spacer block was inserted and the knee was brought into extension. The 8mm spacer block provided full extension, without hyperextension and with stability of both the medial and lateral collateral ligaments was assessed. The pins from the femur and the tibia were then removed. The distal femur was then sized. The anterior stylus was placed onto the lateral ridge of the anterior femur. This indicated a size 5 femur. The external rotation of the guide was adjusted to 0 degrees to match the epicondylar axis, perpendicular to [place]?s line. The 4-in-1 cutting guide was the placed. The posterior medial femur cut was evaluated and appeared of good thickness. The spacer block was inserted underneath the cutting guide and stability was confirmed in 90 degrees of flexion. An andreas wing was used to confirm appropriate position of the anterior cut to avoid notching. This cutting guide was ensured to be flush on the cut surface and then pinned into place with headed pins. While protecting the soft tissues, quad tendon, and collateral ligaments, the anterior and posterior cuts were performed with a saw. The central two pins were removed and the posterior and anterior chamfers were cut next. The notch-cutting guide was placed. This was pinned to lateralize the femoral component as much as possible while keeping it flush on the cut surface. This was then pinned into position. A reciprocating saw was used to make the notch cut. A rasp smoothed the cut surfaces. The medial and lateral menisci were removed. A trial femoral component was then inserted, impacted down to the cut surfaces, and the lug holes were drilled. A provisional trial tibial component was placed and the knee was brought through range of motion. The polyethylene was trialed until there was good flexion and extension with excellent stability to the medial and lateral collaterals. The patella was tracking without thumbs. A size 10mm polyethylene component provided the best range of motion and stability with less than 2mm gapping with medial and lateral stress and full extension without significant hyperextension. The tibial cut surface was fully exposed. The tibia was then sized as a 4. The tibia had been previously marked during trialing to correspond to the center of the tibial component to help with rotation. The trial was aligned to this stoney, approximately rotated to the medial 1/3rd of the tibial tubercle. The trial was pinned into place. The tibia was prepared with a reamer and a keel punch and lug holes. The knee was then brought into extension and the patella was measured as 25mm. Using the patellar clamp and cut guide, this was resected to a flat surface with at least 13mm of thickness remaining. The size 38mm patella fit the best. This was oriented and then clamped into position. The lugs were drilled. The trial components were removed. The final components were opened on the back table. The periosteal and capsular tissues, especially posteriorly, around the knee were then systematically injected with a periarticular cocktail consisting of 246mg of Ropivacaine, 0.5mg of Epinephrine, 0.08mg of Clonidine, and 30mg of Ketorolac, diluted to 100cc. On the back table, with the implants opened. The cement was mixed. One batch of high viscosity cement was prepared with vacuum assistance. After the cement was ready a small amount was placed on the cut surface of the patella and the patellar button was clamped into position and held. The cementless knee components were placed. Starting with the tibial component, the tibia was subluxed anteriorly and the lug holes of the component were lined up. The tibia was then impacted with an impactor and mallet until the tibial component was in contact with the tibia. Then, the femoral component was inserted. The lug holes were aligned and the component was impacted into position. The final polyethylene component was inserted. The knee was irrigated with Surgiphor Betadine solution. This was allowed to sit in the knee for 3 minutes and then it was irrigated out with saline. After the cement had finally cured, approximately 15min, the clamp was removed from the patella and the knee was taken through range of motion. The patella was tracking with a no-thumbs technique. A complete synovectomy was performed around the periphery of the patella. The capsule was then reapproximated with a No. 1 Vicryl at multiple locations. The capsule was finally closed with a No. 2 Stratafix, barbed suture. Deep tissues were then reapproximated with 0 Vicryl and 2-0 Vicryl. The skin was closed with a running 3-0 Monocryl in a subcuticular fashion. This was reinforced with skin glue. A Mepilex silver dressing was applied along with a [id number] TONYA wrap. A CryoCuff was applied. Benigno was transferred to the hospital bed without difficulty an suffering no apparent complication. Benigno has a good prognosis. Physical therapy will start today and without re strictions, weight-bearing as tolerated. Aspirin 81mg BID will be used for DVT prophylaxis. Date of Procedure: 05/11/25
--- NOTE | 2025-05-11 14:59 | W.ANESPOSTOP ---
Postoperative Evaluation Date, Time and Location Date Performed: 05/11/25 Time Performed: 15:00 Patient Location: PACU Vital Signs Most Recent Imported Vital Signs: Most Recent Vital Signs Temp Pulse Resp BP Pulse Ox 36.7 C 89 23 130/96 H 96 05/11/25 12:04 05/11/25 12:04 05/11/25 12:04 05/11/25 12:04 05/11/25 12:04 Most Recent Manually Entered Vital Signs: Adult Blood Pressure: 159/96 Heart Rate: 97 Respirations: 16 Oxygen Saturation (%): 98 Temperature (C): 36.2 C Pain Score (0-10 Scale): 10 Pain Score Most Recent Pain Score: Most Recent Pain Score Pain Level 0 05/11/25 12:04 Assessment Mental Status: Awake (Alert & Oriented to Patient Baseline) Airway and Respiratory Function: Patent airway with normal (patient baseline) respiratory exam Cardiovascular Function: Hemodynamically Stable Hydration Status: Adequately Hydrated Nausea & Vomiting: No Nausea or Vomiting Pain: Pain is Moderate or Severe Postoperative Pain Management: Pain being addressed with medication Peripheral Nerve Block: Regional nerve block not resolved at time of post operative discharge Teaching Patient Teaching: Advised to seek followup for the following concerns (See explanation) (EKG done at bedside, no change compared to baseline, troponins to be drawn, monogram machine operator will followup if abnormal) Concerns: Cardiac Optimization and Other
[2025-05-11] MEDS: Methocarbamol 750 MG TAB PO (15:01)
--- NOTE | 2025-05-11 15:31 | IN_ITS ---
Date of service: 05/11/25 PT Notes Visit Reasons: Left knee DJD Physical Therapy Day Surgery Initial Evaluation Date: 05/11/2025 Referring Doctor: Nuris Sinclair NP; Dr Landers PT Orders: PT CONSULT: s/p Ortho surgery Precautions:WBAT LLE Patient Profile/Admitting Diagnosis: Pt is a 64 yo male presenting s/p elective left TKA under Spinal anesthesia with Adductor block by Dr Landers on 05/11/2025. During surgery he had a brief pause of asystole. He remained perfused and recovered. This happened a second time. Sedation was stopped and he was awakened. Prepping for the case was paused until he was awake where Surgeon was able to evaluate him which showed he had active hand function thus no high spinal, and was able to completely discuss his case and any symptoms which he had none. He desired for MD to proceed with surgery and he remained stable from that point onward. post op uncomplicated PMHX: DJD left knee Hypertensive urgency Afib History of ischemic cardiomyopathy Surgical History (Updated 03/04/25 @ 09:50 by ANJEL Emerson) History of HI (myocardial infarction) With stent placement Left Shoulder surgery Social History/Home Situation: pt resides in single-family home. Patient is able to enter home through basement without stairs. He reports he will stay downstairs in basement initially. He has a flight of stairs with 2 rails to the main level of the home where his bedroom and shower are located. Patient is employed. Drives independent ADLs, medication management home management is available to assist as needed. 2 dogs Equipment Owned/DME: 2 walker( neither of which are his) FWW brought into [facility] was adjusted to proper height and was instructed to set other walker to this height. Subjective: Pt reports he is feeling okay. He reports he has walked with a limp for years and is hoping now that it is replaced he will be able to walk without he limp. Patient reports he will have 1 walker on each level of home. Objective: [] General Observation: male semireclined on stretcher with cryocuff to left knee, Mental Status: A+ O x 4 , cooperative able to follow instructions, agreeable to participate in assessment Pain:left knee 4 initially then increased to 7 with initial stand then reduced back to a 4 after walking and performing the stairs ROM: [] Right Upper Extremity: WFL Left Upper Extremity: WFL Right Lower Extremity: WFL Left Lower Extremity:hip and ankle WFL knee Strength: BUE: 5/5 Right Lower Extremity: 5/5 Left Lower Extremity: Hip flexion: 3- /5; hip abduction: 3- /5; hip extension:3- /5; knee extension: 3- /5; knee flexion: 2+ /5 ankle DF: 3 /5 ; ankle PF: 3/5; Fair quad set and able to perform shortened range SLR without lag with cue to initiate motion with quad set x 1 trial Sensation: intact to touch and pain Bed Mobility/Transfers: [] Supine to sit CGA for LLE Sit to stand SBAcues for hands Stand to sit SBA cues for hands Bed to chair with FWW SBA Gait: amb with FWW with SBA 100 feet demonstrating antalgic Left step to pattern decreased knee flexion left during swing phase, early heel off left ER of LLE Balance: [] Static Sitting: Normal Dynamic Sitting: Fair + Static Standing: Good Dynamic Standing: fair + without UE support Special Tests: [] Mobility Limitations Standardized Measure [] [facility] AM-PAC 6 clicks Basic Mobility Inpatient Short Form: [] Raw Score:23 CMS Score: 11.20% Informed Consent/Education: Patient instructed in purpose of PT consult. Treatment: 76770 therapeutic activity packet containing TKA exercise protocol has been given to patient. Education and training on initial set of 5 reps of exercises that can be done at home have been completed with patient. Functional mobility skills with FWW various surfaces including bed chair commode toilet standby assist with cues for hand placement Assessment: Patient is a 64 yo male who presents with clinical signs and symptoms consistent with current/admitting diagnoses that have resulted to mobility limitations, gait instability, generalized weakness, and impairment of motor control as demonstrated by the following impairment level findings: 1. Decreased strength to left knee major muscle groups 2. Impaired standing balance 3. Limitation of joint range of motion in left knee 4. Pain left knee 5. Impaired functional activity tolerance Impairments are contributing to the following functional limitations: 1. Inability to safely ambulate without assistive device 2. Increase completion time for mobility ADL performance 3. Increased fall risk 4. Difficulty performing stairs without assistances Patient is assessed as amoderate complexity based on the following: History: 64-year-old male with impairment level findings, functional limitations, and past medical history as indicated above Examination: Demonstrable impairment in strength, balance, and mobility level with underlying impairments and functional limitations as documented above Presentation:stable / evolving Decision Making:moderate Goals: N/A. PT evaluation and 1-2 treatment sessions only for functional mobility training using recommended AD and for HEP instruction. Plan of Care/Treatment Plan: N/A. PT evaluation and 1-2 treatment session only for functional mobility training using recommended AD and for HEP instruction. DISCHARGE RECOMMENDATIONS: Home with HEP and outpatient PT as scheduled TREATMENT CODE/TIME: 82253, [id number]/ [id number] Thank you for the opportunity to participate in the care of this patient. Alise Wong, PT [facility]
[2025-05-11 15:53] LABS: Troponin I 5 ng/L (<54)
[2025-05-11] MEDS: Tranexamic Acid 650 MG TAB 1300 MG PO (16:18)
== END 2025-05-11 17:39 | disposition home or self-care (01) ==
LOC: SUR 10:49
PROVIDERS: Nurse Anesthetist, Certified Registered; PCP Physician Assistant; Visit Provider Student in an Organized Health Care Education/Training Program
PROC: (CPT 27447; principal; 2025-05-11 13:45)
DX: M17.12 Unilateral primary osteoarthritis, left knee (principal); G89.18 Other acute postprocedural pain; I48.91 Unspecified atrial fibrillation; I10 Essential (primary) hypertension; Z79.01 Long term (current) use of anticoagulants
CPT/HCPCS: 27447; 64447; 64450; 97162; 97530; 84484; 93005; 93010; C1776; J0665; J0666; J0690; J1100; J2003; J2371; J2401; J2405; J2704; J3010; J3475

== ENCOUNTER 2025-05-24 12:12 | Outpatient (CLI) | payer OTHER, SELFPAY ==
--- NOTE | 2025-05-24 11:15 | DI.RAD_ITS ---
Exam(s) XR KNEE LT 1V XR STANDING ALIGNMENT EXAM: XR STANDING ALIGNMENT and XR knee LT 1 V CLINICAL HISTORY: 1ST POST OP S/P L TKA. TECHNIQUE: 2D digital imaging was performed. Five images were obtained. COMPARISON: CR XR KNEE LT 1V from 05/06/2025 CR XR STANDING ALIGNMENT from 05/06/2025 FINDINGS: BONES: The hips are well maintained. There has been interval placement of a left total knee arthroplasty. The orthopedic hardware appears in good position. There are no suspicious lucencies within or around the orthopedic hardware to suggest loosening. Degenerative changes are seen in the right knee characterized by joint space narrowing and osteophytes. There is chondrocalcinosis in the lateral femoral tibial joint. The ankles are well maintained.There is no significant leg length discrepancy. SOFT TISSUE: Normal. IMPRESSION: Status post placement of a left total knee arthroplasty. DATA REPOSITORY: RADIATION DOSE DELIVERED:
== END 2025-05-24 12:13 | disposition home or self-care (01) ==
LOC: DIORS 12:12
PROVIDERS: PCP Physician Assistant; Visit Provider Student in an Organized Health Care Education/Training Program
DX: Z96.652 Presence of left artificial knee joint (principal)
CPT/HCPCS: 73560; 77073